=== PATIENT | male | born 1935 | race Caucasian/White ===

== ENCOUNTER → 2017-11-12 | Outpatient (CLI) | payer MEDICARE, BC | END | disposition home or self-care (01) | LOC: HKI 09:53 | DX: M70.62 Trochanteric bursitis, left hip (principal); Y93.9 Activity, unspecified; M16.12 Unilateral primary osteoarthritis, left hip; J45.909 Unspecified asthma, uncomplicated; Z95.1 Presence of aortocoronary bypass graft | CPT/HCPCS: G0463 ==